=== PATIENT | male | born 1960 | race Caucasian/White ===

== ENCOUNTER → 2016-04-30 | Outpatient (CLI) | payer BC, OTHER ==
[2016-04-30 13:14] LABS: Urine Bilirubin Negative (Negative); Urine Blood Negative /uL (Negative); Urine Color Yellow (Yellow); Urine Glucose Normal (Normal); Urine Ketone Negative (Negative); Urine Nitrite Negative (Negative); Urine Urobilinogen Normal (Negative); Urine pH 5.5 (5.0-8.0)
[2016-04-30 13:47] LABS: Basophils # (auto) 0.1 uL; Basophils % (auto) 0.8 % (0.0-2.0); Eosinophils # (auto) 0.2 uL; Eosinophils % (auto) 3.4 % (0.0-7.0); Hematocrit 45.1 % (41.0-53.0); Hemoglobin 15.1 g/dL (13.5-17.5); Lymphocytes # (auto) 1.3 uL; Lymphocytes % (auto) 19.3 % (10.0-50.0); Mean Corpuscular Hemoglobin 31.1 pg (28.0-32.0); Mean Corpuscular Hgb Conc. 33.6 g/dL (32.0-36.0); Mean Corpuscular Volume 92.6 fL (80.0-100.0); Mean Platelet Volume 7.3 fL (7.4-10.4); Monocytes # (auto) 0.5 uL; Monocytes % (auto) 6.9 % (0.0-12.0); Neutrophils # (auto) 4.7 uL; Neutrophils % (auto) 69.6 % (37.0-80.0); Platelet Count (auto) 346 10^3/uL (140-450); Red Cell Distribution Width 13.6 % (11.6-16.0); White Blood Cell 6.8 10^3/uL (4.4-10.8)
[2016-04-30 14:13] LABS: Albumin 3.8 g/dL (3.4-5.0); Bilirubin, Direct 0.1 mg/dL (0-0.2); Bilirubin, Total 0.5 mg/dL (0.2-1.0); Calcium 8.9 mg/dL (8.5-10.1); Total Protein 7.5 g/dL (6.4-8.2)
== END | disposition home or self-care (01) ==
LOC: LAB 10:26
PROVIDERS: ATTEND Internal Medicine Cardiovascular Disease
DX: I10 Essential (primary) hypertension (principal); E78.00 Pure hypercholesterolemia, unspecified; K74.1 Hepatic sclerosis; E11.9 Type 2 diabetes mellitus without complications; R97.20 Elevated prostate specific antigen [PSA]; R53.81 Other malaise; E03.9 Hypothyroidism, unspecified; D64.9 Anemia, unspecified; E55.9 Vitamin D deficiency, unspecified; N39.0 Urinary tract infection, site not specified
CPT/HCPCS: 36415; 80048; 80061; 80076; 81003; 82306; 83036; 84153; 84403; 84443; 85025

== ENCOUNTER → 2016-06-23 | Outpatient (CLI) | payer BC ==
[2016-06-23 09:06] VITALS: BP 145/94
[2016-06-23 09:36] VITALS: BP 141/84
[2016-06-23 12:13] LABS: Basophils # (auto) 0 uL; Basophils % (auto) 0.6 % (0.0-2.0); Eosinophils # (auto) 0.3 uL; Eosinophils % (auto) 4.8 % (0.0-7.0); Hematocrit 42.2 % (41.0-53.0); Hemoglobin 14.3 g/dL (13.5-17.5); Lymphocytes # (auto) 1.4 uL; Lymphocytes % (auto) 20.1 % (10.0-50.0); Mean Corpuscular Hgb Conc. 33.9 g/dL (32.0-36.0); Mean Corpuscular Volume 91.5 fL (80.0-100.0); Mean Platelet Volume 7.7 fL (7.4-10.4); Monocytes # (auto) 0.6 uL; Monocytes % (auto) 8.3 % (0.0-12.0); Neutrophils # (auto) 4.6 uL; Neutrophils % (auto) 66.2 % (37.0-80.0); Platelet Count (auto) 346 10^3/uL (140-450); White Blood Cell 6.9 10^3/uL (4.4-10.8)
[2016-06-23 12:17] LABS: Urine Bilirubin Negative (Negative); Urine Blood Negative /uL (Negative); Urine Color Yellow (Yellow); Urine Glucose Normal (Normal); Urine Ketone Negative (Negative); Urine Nitrite Negative (Negative); Urine Urobilinogen Normal (Negative); Urine pH 5.5 (5.0-8.0)
[2016-06-23 12:45] LABS: INR 0.97 (0.9-1.15); Partial Thromboplastin Time 27.1 sec (22.64-33.71)
[2016-06-23 12:47] LABS: BUN/Creatinine Ratio 12.7; Calcium 8.8 mg/dL (8.5-10.1); Potassium 3.8 mmol/L (3.5-5.1)
== END | disposition home or self-care (01) ==
LOC: Rad HDHVI 08:52
PROVIDERS: ATTEND Internal Medicine Cardiovascular Disease
DX: I10 Essential (primary) hypertension (principal); D64.9 Anemia, unspecified; R79.1 Abnormal coagulation profile; N39.0 Urinary tract infection, site not specified
CPT/HCPCS: 36415; 71020; 80048; 81003; 85025; 85610; 85730; 93005; G0463

== ENCOUNTER 2016-11-30 16:17 | Emergency (ER) | payer BC ==
[~2016-11-30] VITALS: Ht 182.9 cm; Wt 84.8 kg
[2016-11-30 17:04] LABS: Basophils # (auto) 0 uL; Basophils % (auto) 0.2 % (0.0-2.0); CONDITION Y; Eosinophils # (auto) 0.1 uL; Eosinophils % (auto) 0.3 % (0.0-7.0); Hematocrit 32.5 % (41.0-53.0); Hemoglobin 10.9 g/dL (13.5-17.5); Lymphocytes # (auto) 1.4 uL; Mean Corpuscular Hemoglobin 28.1 pg (28.0-32.0); Mean Corpuscular Hgb Conc. 33.6 g/dL (32.0-36.0); Mean Corpuscular Volume 83.6 fL (80.0-100.0); Mean Platelet Volume 6.1 fL (7.4-10.4); Monocytes # (auto) 1.3 uL; Monocytes % (auto) 7.7 % (0.0-12.0); Neutrophils # (auto) 14.7 uL; Neutrophils % (auto) 83.8 % (37.0-80.0); Platelet Count (auto) 720 10^3/uL (140-450); Red Cell Distribution Width 13.8 % (11.6-16.0); White Blood Cell 17.6 10^3/uL (4.4-10.8)
[2016-11-30 17:19] LABS: INR 1.07 (0.9-1.15); Partial Thromboplastin Time 33.6 sec (22.64-33.71); Prothrombin Time 11.7 sec (9.37-12.3)
[2016-11-30 17:20] LABS: Urine RBC None Seen /hpf (0 - 3)
[2016-11-30 17:26] LABS: Urine Bilirubin Negative (Negative); Urine Blood Negative /uL (Negative); Urine Color Yellow (Yellow); Urine Glucose Normal (Normal); Urine Ketone Negative (Negative); Urine Nitrite Negative (Negative); Urine Urobilinogen Normal (Negative); Urine pH 5.5 (5.0-8.0)
[2016-11-30 17:32] LABS: Albumin 2.3 g/dL (3.4-5.0); BUN/Creatinine Ratio 10.3; Bilirubin, Total 0.5 mg/dL (0.2-1.0); Calcium 8.7 mg/dL (8.5-10.1); Magnesium 2.3 mg/dL (1.6-2.6); Potassium 4.1 mmol/L (3.5-5.1); Total Protein 8.2 g/dL (6.4-8.2)
[2016-11-30] MEDS ORDERED: cefTRIAXone 1GM/50ML D5W 50 ML IV ONE (18:30)
[2016-11-30] MEDS ORDERED: SODIUM CHLORIDE 0.9% 1,000 ML IV ONE (18:30)
[2016-11-30 18:49] VITALS: BP 134/69
[2016-11-30] MEDS ORDERED: TETANUS-DIPTH-ACEL PERTUSSIS 0.5ML SYRG IM ONE (19:00)
== END 2016-11-30 18:58 | disposition home or self-care (01) ==
LOC: ER 16:19
DX: S36.039A Unspecified laceration of spleen, initial encounter (principal); S36.899A Unspecified injury of other intra-abdominal organs, initial encounter; S39.91XA Unspecified injury of abdomen, initial encounter; S80.812A Abrasion, left lower leg, initial encounter; Z87.891 Personal history of nicotine dependence; Z88.1 Allergy status to other antibiotic agents; E78.5 Hyperlipidemia, unspecified; I10 Essential (primary) hypertension; R53.1 Weakness; V43.92XA Unspecified car occupant injured in collision with other type car in traffic accident, initial encounter; Y93.89 Activity, other specified; Y92.89 Other specified places as the place of occurrence of the external cause; Y99.8 Other external cause status; F12.10 Cannabis abuse, uncomplicated
CPT/HCPCS: 36415; 71010; 74176; 80053; 81001; 82150; 83690; 83735; 85025; 85610; 85730; 87040; 90471; 90715; 96365; 99291; J0696; J7030

== ENCOUNTER → 2016-11-30 | Outpatient (CLI) | payer BC ==
[~2016-11-30] MED LIST: FLUO10CA15 PO; LEVO-28 PO; METH20TA PO; [UNRECOGNIZED DRUG - CODE] IJ
[2016-11-30 12:52] LABS: Urine RBC None Seen /hpf (0 - 3)
[2016-11-30 13:11] LABS: Urine Bilirubin Negative (Negative); Urine Blood Negative /uL (Negative); Urine Color Yellow (Yellow); Urine Glucose Normal (Normal); Urine Ketone Negative (Negative); Urine Nitrite Negative (Negative); Urine Urobilinogen Normal (Negative); Urine pH 5.5 (5.0-8.0)
[2016-11-30 13:12] LABS: Basophils # (auto) 0.1 uL; Basophils % (auto) 0.3 % (0.0-2.0); CONDITION Y; DEFINITIVE SEE PRINTOUT; Eosinophils # (auto) 0.1 uL; Eosinophils % (auto) 0.4 % (0.0-7.0); Hematocrit 32.3 % (41.0-53.0); Hemoglobin 10.8 g/dL (13.5-17.5); Lymphocytes # (auto) 1.2 uL; Lymphocytes % (auto) 6.2 % (10.0-50.0); Mean Corpuscular Hemoglobin 28.5 pg (28.0-32.0); Mean Corpuscular Hgb Conc. 33.5 g/dL (32.0-36.0); Mean Corpuscular Volume 85.1 fL (80.0-100.0); Mean Platelet Volume 6.3 fL (7.4-10.4); Monocytes # (auto) 1.8 uL; Monocytes % (auto) 9.5 % (0.0-12.0); Neutrophils # (auto) 15.9 uL; Neutrophils % (auto) 83.6 % (37.0-80.0); Red Cell Distribution Width 13.7 % (11.6-16.0)
[2016-11-30 13:21] LABS: Albumin 2.4 g/dL (3.4-5.0); BUN/Creatinine Ratio 10.8; Calcium 8.4 mg/dL (8.5-10.1); Potassium 4.2 mmol/L (3.5-5.1)
[2016-11-30 13:24] LABS: Bilirubin, Total 0.6 mg/dL (0.2-1.0); Total Protein 8.2 g/dL (6.4-8.2)
[2016-11-30 14:15] LABS: Platelet Count (auto) 759 10^3/uL (140-450)
[2016-11-30 14:24] LABS: Platelet Estimate Markedly Increased
== END | disposition home or self-care (01) ==
LOC: LAB 11:44
PROVIDERS: ATTEND Internal Medicine Cardiovascular Disease
DX: S36.039A Unspecified laceration of spleen, initial encounter (principal); S39.91XA Unspecified injury of abdomen, initial encounter; S36.899A Unspecified injury of other intra-abdominal organs, initial encounter; D73.89 Other diseases of spleen; K66.1 Hemoperitoneum; D73.5 Infarction of spleen; I10 Essential (primary) hypertension; E11.9 Type 2 diabetes mellitus without complications; X58.XXXA Exposure to other specified factors, initial encounter; Y93.89 Activity, other specified; Y92.89 Other specified places as the place of occurrence of the external cause; Y99.8 Other external cause status
CPT/HCPCS: 36415; 80053; 81001; 85025; 87040; 87086

== ENCOUNTER → 2016-12-07 | Outpatient (CLI) | payer BC ==
[2016-12-07 09:30] LABS: Basophils # (auto) 0 uL; Basophils % (auto) 0.2 % (0.0-2.0); CONDITION Y; DEFINITIVE SEE PRINTOUT; Eosinophils # (auto) 0.1 uL; Eosinophils % (auto) 0.6 % (0.0-7.0); Hematocrit 31.7 % (41.0-53.0); Hemoglobin 10.5 g/dL (13.5-17.5); Lymphocytes # (auto) 1.3 uL; Lymphocytes % (auto) 7.6 % (10.0-50.0); Mean Corpuscular Hgb Conc. 33.2 g/dL (32.0-36.0); Mean Corpuscular Volume 84.5 fL (80.0-100.0); Mean Platelet Volume 6.5 fL (7.4-10.4); Monocytes # (auto) 1.4 uL; Monocytes % (auto) 7.9 % (0.0-12.0); Neutrophils # (auto) 14.8 uL; Neutrophils % (auto) 83.7 % (37.0-80.0); Red Cell Distribution Width 14.3 % (11.6-16.0); White Blood Cell 17.7 10^3/uL (4.4-10.8)
[2016-12-07 09:38] LABS: BUN/Creatinine Ratio 9.2; Calcium 8.7 mg/dL (8.5-10.1); Potassium 4.2 mmol/L (3.5-5.1)
[2016-12-07 09:41] LABS: Bilirubin, Total 0.4 mg/dL (0.2-1.0); Total Protein 7.7 g/dL (6.4-8.2)
[2016-12-07 10:06] LABS: Platelet Count (auto) 841 10^3/uL (140-450); Platelet Estimate Markedly Increased
== END | disposition home or self-care (01) ==
LOC: LAB 08:06
PROVIDERS: ATTEND Internal Medicine Cardiovascular Disease
DX: I10 Essential (primary) hypertension (principal); D64.9 Anemia, unspecified; E11.9 Type 2 diabetes mellitus without complications; K57.90 Diverticulosis of intestine, part unspecified, without perforation or abscess without bleeding
CPT/HCPCS: 36415; 80053; 85025

== ENCOUNTER 2017-02-01 03:45 | Inpatient (IN) | payer BC ==
[~2017-02-01] VITALS: Ht 185.4 cm; Wt 80.0 kg
[~2017-02-01 03:45] MED LIST changes: +[UNRECOGNIZED DRUG - CODE] IJ; -[UNRECOGNIZED DRUG - CODE] IJ
[2017-02-01] MEDS ORDERED: SODIUM CHLORIDE 0.9% 1,000 ML IV ONE (04:30)
[2017-02-01 04:32] LABS: Allen Test Modified; Base Excess -1.8 mmol/L (-2.0-2.0); Blood 02Sat 93.6 % (96-100); Blood COHb 0.5 % (0.5-1.5); Blood MetHb 0.3 % (0.0-1.5); HCO3 20.7 mmol/L (22-26.0); HHb 6.3 % (0.0-5.0); MODE NASAL CANNULA; O2Hb 92.9 % (94.0-97.0); PCO2 28.1 mmHg (35.0-45.0); PCO2(T) 28.1 mmHg (35.0-45.0); PO2 74.5 mmHg (80.0-100.0); PO2(T) 74.5 mmHg (80.0-100.0); Sample Type Arterial; pH 7.486 (7.350-7.450)
[2017-02-01 04:44] LABS: Hematocrit 30.1 % (41.0-53.0); Hemoglobin 9.5 g/dL (13.5-17.5); Mean Corpuscular Hemoglobin 27.8 pg (28.0-32.0); Mean Corpuscular Hgb Conc. 31.6 g/dL (32.0-36.0); Mean Corpuscular Volume 87.8 fL (80.0-100.0); Mean Platelet Volume 6.7 fL (6.9-10.8); Platelet Count (auto) 300 10^3/uL (140-450)
[2017-02-01 04:45] LABS: INR 1.01 (0.9-1.15); Partial Thromboplastin Time 29.9 sec (22.64-33.71)
[2017-02-01 04:48] LABS: Red Cell Distribution Width 20.1 % (11.8-14.3)
[2017-02-01 04:51] LABS: Albumin 1.2 g/dL (3.4-5.0); Alkaline Phosphatase 293 U/L (45-117); Anion Gap 12 (5-15); Aspartate Aminotransferase 47 U/L (15-37); BUN/Creatinine Ratio 36.6; Blood Urea Nitrogen 34 mg/dL (7-18); Calcium 8.6 mg/dL (8.5-10.1); Carbon Dioxide 23 mmol/L (21-32); Chloride 90 mmol/L (98-107); GFR African American 108 mL/min; GFR Non-African American 89 mL/min; Glucose 149 mg/dL (74-106); Potassium 5.2 mmol/L (3.5-5.1); Sodium 125 mmol/L (136-145); Total Protein 6.5 g/dL (6.4-8.2)
[2017-02-01] MEDS ORDERED: DOXYCYCLINE HYC 100MG/250ML 250 ML IV ONE ×2 (05:00→05:27)
[2017-02-01] MEDS ORDERED: SODIUM POLYSTYRENE SULF 15GM/60ML SUSP PO ONE (05:00)
[2017-02-01 05:40] LABS: Temperature: 21.8 C (20.0-25.0)
[2017-02-01 05:42] LABS: Metamyelocytes % 0; Myelocytes % 0; Promyelocytes % 0; Reactive Lymphocytes 0
[2017-02-01 05:44] LABS: Anisocytosis Slight; Platelet Estimate Adequate
[2017-02-01] MEDS ORDERED: MORPHINE SULF INJ 2 MG/ML SYRINGE 1ML IV PRN ×4 (05:45→13:30)
[2017-02-01] MEDS ORDERED: HYDROcodone-ACET 5/325MG TAB PO PRN (05:45)
[2017-02-01] MEDS ORDERED: ONDANSETRON HCL 4 MG/2 ML VIAL IV PRN (05:45)
[2017-02-01] MEDS ORDERED: NITROGLYCERIN 0.4 MG SL TAB SL PRN ×2 (05:45→13:30)
[2017-02-01] MEDS ORDERED: ACETAMINOPHEN 500 MG TAB PO PRN (05:45)
[2017-02-01] MEDS ORDERED: LORazepam 2MG/ML-1ML VIAL IV PRN ×2 (05:45→13:30)
[2017-02-01] MEDS ORDERED: IPRATROPIUM BROM 0.5 MG/2.5ML INH SOL NEB PRN (06:00)
[2017-02-01] MEDS ORDERED: ALBUTEROL SULF 2.5 MG/0.5ML(0.5%) NEB SOLN NEB PRN ×2 (06:00→13:30)
[2017-02-01 07:38] LABS: Urine Bilirubin Negative (Negative); Urine Blood Negative /uL (Negative); Urine Ca Oxalate Crystal FEW (None Seen); Urine Color Yellow (Yellow); Urine Glucose Normal (Normal); Urine Ketone Negative (Negative); Urine Mucus FEW (None Seen); Urine Nitrite Negative (Negative); Urine RBC 2 /hpf (0 - 3); Urine pH 5.5 (5.0-8.0)
[2017-02-01 08:20] LABS: Lactic Acid w/Reflex 2.6 mmol/L (0.4-2.0)
[2017-02-01] MEDS ORDERED: ETOMIDATE (2MG/ML) 20ML VIAL IV ONE ×2 (13:14→14:00)
[2017-02-01] MEDS ORDERED: MIDAZOLAM DRIP 50 mg/50mL 50 ML IV ONE (13:14)
[2017-02-01] MEDS ORDERED: NOREPINEPHRINE BITARTRATE 250 ML IV ONE (13:24)
[2017-02-01] MEDS ORDERED: SODIUM CHLORIDE 0.9% 1,000 ML IV SCH (13:26)
[2017-02-01] MEDS ORDERED: PROMETHAZINE HCL 25 MG/ML 1ML IV PRN (13:30)
[2017-02-01] MEDS: NOREPINEPHRINE BITARTRATE 250 ML IV SCH ×2 (13:30→14:13)
[2017-02-01] MEDS ORDERED: VANCOMYCIN PER PHARMACY 0 MG IV SCH (13:30)
[2017-02-01] MEDS ORDERED: AZITHROMYCIN 500MG/D5W 250ML 250 ML IV ONE (13:30)
[2017-02-01] MEDS: MIDAZOLAM DRIP 50 mg/50mL 50 ML IV SCH (13:30)
[2017-02-01 13:47] VITALS: BP 95/52
[2017-02-01] MEDS: ENOXAPARIN SOD 40 MG/0.4 ML SYRINGE SC SCH (14:00)
[2017-02-01 14:38] LABS: Allen Test Modified; Base Excess -4.2 mmol/L (-2.0-2.0); Blood 02Sat 97.9 % (96-100); Blood COHb 0.3 % (0.5-1.5); Blood MetHb 0.3 % (0.0-1.5); HCO3 20.8 mmol/L (22-26.0); HHb 2.1 % (0.0-5.0); MODE VENT - A/C; O2Hb 97.3 % (94.0-97.0); PCO2 37.7 mmHg (35.0-45.0); PCO2(T) 37.7 mmHg (35.0-45.0); PIP 28; PO2 135.5 mmHg (80.0-100.0); PO2(T) 135.5 mmHg (80.0-100.0); Sample Type Arterial; Spont Vt 588
[2017-02-01] MEDS: PIPERACILLIN-TAZOB 3.375GM 100 ML IV SCH ×2 (14:45→17:56)
[2017-02-01 14:47] VITALS: BP 95/52
[2017-02-01 16:12] VITALS: BP 113/52
[2017-02-01] MEDS: VANCOMYCIN 1GM/250ML D5W 250 ML IV SCH (17:18)
[2017-02-01 18:00] VITALS: BP 98/69
[2017-02-01] MEDS ORDERED: DOXYCYCLINE HYC 100MG/250ML 250 ML IV SCH (18:00)
[2017-02-01] MEDS: ALBUTEROL SULF 2.5 MG/0.5ML(0.5%) NEB SOLN NEB SCH (18:00)
[2017-02-01] MEDS: IPRATROPIUM BROM 0.5 MG/2.5ML INH SOL NEB SCH (18:00)
[2017-02-01 19:55] VITALS: BP 101/65
[2017-02-01] MEDS ORDERED: fentaNYL CITRATE 100 MCG/2 ML VL ONE (20:41)
[2017-02-01] MEDS ORDERED: fentaNYL Drip 2500mCg/250mlNS 250 ML IV ONE (20:41)
[2017-02-01] MEDS ORDERED: fentaNYL CITRATE 100 MCG/2 ML VL IV ONE (20:45)
[2017-02-01] MEDS: fentaNYL Drip 2500mCg/250mlNS 250 ML IV SCH (20:54)
[2017-02-01 22:05] VITALS: BP 95/61
[2017-02-02] VITALS (67 sets, daily range): BP systolic 88–126; BP diastolic 53–78
[2017-02-02] MEDS: IPRATROPIUM BROM 0.5 MG/2.5ML INH SOL NEB SCH ×4 (00:15→23:54)
[2017-02-02] MEDS: ALBUTEROL SULF 2.5 MG/0.5ML(0.5%) NEB SOLN NEB SCH ×4 (00:15→23:54)
[2017-02-02] MEDS: PIPERACILLIN-TAZOB 3.375GM 100 ML IV SCH ×5 (00:20→23:50)
[2017-02-02 03:33] LABS: REFLEX LACTIC ACID YES OR NO YES
[2017-02-02] MEDS: VANCOMYCIN 1GM/250ML D5W 250 ML IV SCH ×2 (05:23→17:42)
[2017-02-02 06:52] LABS: Hematocrit 25.2 % (41.0-53.0); Hemoglobin 8.1 g/dL (13.5-17.5); Mean Corpuscular Hemoglobin 28.6 pg (28.0-32.0); Mean Corpuscular Volume 89.5 fL (80.0-100.0); Mean Platelet Volume 6.7 fL (6.9-10.8); Platelet Count (auto) 159 10^3/uL (140-450)
[2017-02-02 06:54] LABS: Red Cell Distribution Width 20.2 % (11.8-14.3)
[2017-02-02 06:56] LABS: White Blood Cell 36.7 10^3/uL (4.4-10.8)
[2017-02-02 06:57] LABS: Metamyelocytes % 0; Myelocytes % 0; Promyelocytes % 0; Reactive Lymphocytes 0
[2017-02-02 07:11] LABS: Potassium 5.3 mmol/L (3.5-5.1)
[2017-02-02 07:18] LABS: BUN/Creatinine Ratio 36.2; Calcium 8.3 mg/dL (8.5-10.1)
[2017-02-02 07:21] LABS: Bilirubin, Total 0.9 mg/dL (0.2-1.0); Total Protein 5.3 g/dL (6.4-8.2)
[2017-02-02] MEDS: MIDAZOLAM DRIP 50 mg/50mL 50 ML IV SCH ×3 (07:43→23:59)
[2017-02-02] MEDS: NOREPINEPHRINE BITARTRATE 250 ML IV SCH ×2 (07:53→17:42)
[2017-02-02 08:00] LABS: Anisocytosis Slight; Platelet Estimate Adequate
[2017-02-02 08:39] LABS: Allen Test Modified; Base Excess -2.4 mmol/L (-2.0-2.0); Blood 02Sat 96.8 % (96-100); Blood COHb 0.3 % (0.5-1.5); Blood MetHb 0.4 % (0.0-1.5); HCO3 21.5 mmol/L (22-26.0); HHb 3.2 % (0.0-5.0); MODE VENT - A/C; O2Hb 96.1 % (94.0-97.0); PCO2 33.1 mmHg (35.0-45.0); PCO2(T) 33.1 mmHg (35.0-45.0); PIP 23; PO2 100.1 mmHg (80.0-100.0); PO2(T) 100.1 mmHg (80.0-100.0); Room 1018-ER; Sample Type Arterial
[2017-02-02] MEDS: AZITHROMYCIN 500MG/D5W 250ML 250 ML IV SCH (10:43)
[2017-02-02] MEDS ORDERED: PANTOPRAZOLE 40 MG/10 ML VIAL IV ONE (14:15)
[2017-02-02] MEDS: ENOXAPARIN SOD 40 MG/0.4 ML SYRINGE SC SCH (14:57)
[2017-02-02] MEDS: fentaNYL Drip 2500mCg/250mlNS 250 ML IV SCH (20:42)
[2017-02-03] VITALS (95 sets, daily range): BP systolic 63–103; BP diastolic 34–61
[2017-02-03] MEDS: MIDAZOLAM DRIP 50 mg/50mL 50 ML IV SCH ×4 (03:41→18:33)
[2017-02-03] MEDS: NOREPINEPHRINE BITARTRATE 250 ML IV SCH ×2 (03:42→12:53)
[2017-02-03 03:55] LABS: Hemoglobin 7.2 g/dL (13.5-17.5)
[2017-02-03 03:59] LABS: Hematocrit 22.5 % (41.0-53.0); Mean Corpuscular Hemoglobin 28.9 pg (28.0-32.0); Mean Corpuscular Hgb Conc. 32.2 g/dL (32.0-36.0); Mean Corpuscular Volume 89.9 fL (80.0-100.0); Platelet Count (auto) 104 10^3/uL (140-450)
[2017-02-03 04:09] LABS: White Blood Cell 34.6 10^3/uL (4.4-10.8)
[2017-02-03 04:10] LABS: Metamyelocytes % 0; Myelocytes % 0; Promyelocytes % 0; Reactive Lymphocytes 0
[2017-02-03 04:19] LABS: Calcium 7.7 mg/dL (8.5-10.1); Potassium 5.2 mmol/L (3.5-5.1)
[2017-02-03 04:24] LABS: Bilirubin, Total 0.9 mg/dL (0.2-1.0); Total Protein 5.2 g/dL (6.4-8.2)
[2017-02-03] MEDS: VANCOMYCIN 1GM/250ML D5W 250 ML IV SCH (04:30)
[2017-02-03 04:42] LABS: Anisocytosis Slight; Hypersegmented Neutrophils Present; Platelet Estimate Decreased
[2017-02-03] MEDS: ALBUTEROL SULF 2.5 MG/0.5ML(0.5%) NEB SOLN NEB SCH ×3 (06:26→18:00)
[2017-02-03] MEDS: IPRATROPIUM BROM 0.5 MG/2.5ML INH SOL NEB SCH ×3 (06:26→18:00)
[2017-02-03] MEDS: PIPERACILLIN-TAZOB 3.375GM 100 ML IV SCH ×3 (06:34→18:00)
[2017-02-03 08:05] LABS: Allen Test Modified; Base Excess -4.6 mmol/L (-2.0-2.0); Blood 02Sat 94.3 % (96-100); Blood COHb 0.6 % (0.5-1.5); Blood MetHb 0.5 % (0.0-1.5); HCO3 21.8 mmol/L (22-26.0); HHb 5.6 % (0.0-5.0); MODE VENT - A/C; O2Hb 93.3 % (94.0-97.0); PCO2 46.4 mmHg (35.0-45.0); PCO2(T) 46.4 mmHg (35.0-45.0); PO2 86.1 mmHg (80.0-100.0); PO2(T) 86.1 mmHg (80.0-100.0); Sample Type Arterial; pH 7.289 (7.350-7.450)
[2017-02-03] MEDS ORDERED: PANTOPRAZOLE 40 MG/10 ML VIAL IV SCH (10:00)
[2017-02-03] MEDS: AZITHROMYCIN 500MG/D5W 250ML 250 ML IV SCH (11:00)
[2017-02-03] MEDS: fentaNYL Drip 2500mCg/250mlNS 250 ML IV SCH (12:53)
[2017-02-03] MEDS ORDERED: SODIUM CHLORIDE 0.9% 1,000 ML IV SCH (13:26)
[2017-02-03] MEDS ORDERED: ZOLP10TA PO (16:38)
[2017-02-03] MEDS ORDERED: VANCOMYCIN 750 MG in D5W 5% 250 ML IV SCH (17:00)
[2017-02-03] MEDS ORDERED: ALPR0.25 PO (17:32)
[2017-02-03] MEDS ORDERED: BACL10TA PO (17:32)
[2017-02-03] MEDS ORDERED: ONDA4TAB5 PO (17:32)
[2017-02-03] MEDS ORDERED: MECL12.554 PO (17:32)
[2017-02-03] MEDS ORDERED: LORazepam 2MG/ML-1ML VIAL IV PRN ×2 (19:00→19:45)
[2017-02-03] MEDS ORDERED: MORPHINE SULF INJ 2 MG/ML SYRINGE 1ML IV PRN ×2 (19:00→19:45)
== END 2017-02-04 03:03 | disposition expired | DRG 871 ==
LOC: EDUNIT# 03:45 → ER 03:54 → OVERFLOW 03:55 → ICU WEST 02-02 09:17
PROVIDERS: ADMIT Internal Medicine; ATTEND Internal Medicine
PROC: 5A1945Z Respiratory Ventilation, 24-96 Consecutive Hours (ICD-10-PCS; principal; 2017-02-01)
PROC: 0BH17EZ Insertion of Endotracheal Airway into Trachea, Via Natural or Artificial Opening (ICD-10-PCS; 2017-02-01)
PROC: 30233N1 Transfusion of Nonautologous Red Blood Cells into Peripheral Vein, Percutaneous Approach (ICD-10-PCS; 2017-02-03)
DX: A41.9 Sepsis, unspecified organism (principal); J18.9 Pneumonia, unspecified organism; J96.00 Acute respiratory failure, unspecified whether with hypoxia or hypercapnia; R65.21 Severe sepsis with septic shock; E43 Unspecified severe protein-calorie malnutrition; C22.8 Malignant neoplasm of liver, primary, unspecified as to type; D64.9 Anemia, unspecified; N17.9 Acute kidney failure, unspecified; E87.1 Hypo-osmolality and hyponatremia; C78.6 Secondary malignant neoplasm of retroperitoneum and peritoneum; E87.5 Hyperkalemia; I10 Essential (primary) hypertension; K22.8 Other specified diseases of esophagus; E78.5 Hyperlipidemia, unspecified; F12.90 Cannabis use, unspecified, uncomplicated; B96.1 Klebsiella pneumoniae [K. pneumoniae] as the cause of diseases classified elsewhere; B95.2 Enterococcus as the cause of diseases classified elsewhere; Z88.6 Allergy status to analgesic agent; Z88.1 Allergy status to other antibiotic agents; Z79.899 Other long term (current) drug therapy; Z92.21 Personal history of antineoplastic chemotherapy; Z87.891 Personal history of nicotine dependence; Z83.3 Family history of diabetes mellitus; Z82.49 Family history of ischemic heart disease and other diseases of the circulatory system; Z68.23 Body mass index [BMI] 23.0-23.9, adult
CPT/HCPCS: 36415; 36600; 71010; 71250; 74176; 80053; 80202; 81001; 82140; 82805; 82962; 83605; 83880; 84484; 85007; 85027; 85610; 85730; 86850; 86900; 86901; 86920; 87040; 87070; 87077; 87081; 87086; 87186; 87205; 93005; 94002; 94003; 94640; 96361; 96365; 96367; 96375; 99291; C9113; G0378; J2250; J2543; J3010; J3490; J7060